=== PATIENT | male | born 1960 | race African-American/Black ===

== ENCOUNTER 2021-06-09 16:55 | Emergency (ER) | payer MEDICAID ==
[~2021-06-09] VITALS: Ht 180.3 cm; Wt 85.0 kg
--- NOTE | 2021-06-09 17:05 | NUR ---
PT BIBA FROM [facility] FOR C/O ABD PAIN X1 DAY. HX UMBILICAL HERNIA. FALL PRECAUTIONS IN PLACE, CALL LIGHT PLACED WITHIN REACH.
[2021-06-09] MEDS ORDERED: HYDROmorphone 2 MG/ML, 1ML ONE (17:17)
[2021-06-09] MEDS ORDERED: HYDROmorphone 2 MG/ML, 1ML IVPush ONE (17:30)
--- NOTE | 2021-06-09 17:34 | NUR ---
PROVIDED ICE PACK, PIV PLACED AND MEDICATED PER MAR.
[2021-06-09 18:17] VITALS: BP 133/92
== END 2021-06-09 18:20 | disposition home or self-care (01) ==
LOC: ED 18:14
DX: K43.9 Ventral hernia without obstruction or gangrene (principal)
CPT/HCPCS: 96374; 99283; J1170